=== PATIENT | male | born 1990 | race African-American/Black ===

== ENCOUNTER 2016-11-02 11:18 | Emergency (ER) | payer MEDICAID ==
[2016-11-02 10:34] LABS: URINE SOURCE CLEAN CATCH
[2016-11-02 10:40] LABS: URINE APPEARANCE CLEAR; URINE BILIRUBIN NEG (NEG); URINE BLOOD NEG (NEG); URINE COLOR YELLOW; URINE GLUCOSE NEG (NEG); URINE KETONE NEG (NEG); URINE LEUKOCYTE ESTERASE 1+ (NEG); URINE NITRATE NEG (NEG); URINE PH 5.5 (5-8); URINE PROTEIN NEG (NEG); URINE SPECIFIC GRAVITY 1.026 (1.003-1.035)
[2016-11-02 10:42] LABS: CULTURE INDICATED? YES; URBCS1 AUWI 0-2 /[HPF] (0-2); URINE BACTERIA AUWI NEG (NEGATIVE); URINE SQUAMOUS EPITHELIAL CELL OCC /[HPF]
[2016-11-02 10:51] LABS: U HYALINE CASTS AUWI 0-2 /[LPF]
[2016-11-02 10:52] LABS: URINE MUCUS PRESENT; URINE TRICHOMONAS NEGATIVE
[2016-11-05 17:40] LABS: CHLAMYDIA TRACH Not Detected (Not Detected); N GONOR Not Detected (Not Detected)
== END 2016-11-02 12:29 | disposition home or self-care (01) ==
LOC: CFTX 11:18
DX: Z20.2 Contact with and (suspected) exposure to infections with a predominantly sexual mode of transmission (principal); F17.210 Nicotine dependence, cigarettes, uncomplicated; Z90.49 Acquired absence of other specified parts of digestive tract
CPT/HCPCS: 81003; 87086; 87491; 87591; 96372; 99283; J0696